=== PATIENT | female | born 1970 | race Caucasian/White ===

== ENCOUNTER → 2017-03-31 | Outpatient (CLI) | payer OTHER | LOC: RAD 08:00 | DX: K59.00 Constipation, unspecified (principal) | CPT/HCPCS: 74270 ==

== ENCOUNTER → 2020-11-27 | Outpatient (CLI) | payer OTHER ==
[~2020-11-27] MED LIST: KEFLEX CAP 500500 MG PO; PYRIDIUM100 MG PO; VALIUM 5 MG TAB5 MG PO; ZOFRAN ODT 4 MG4 MG PO; ZOFRAN ODT 4 MG4 MG SL
== END ==
LOC: HEART 5 14:41
DX: R06.00 Dyspnea, unspecified (principal)
CPT/HCPCS: 94010